=== PATIENT | female | born 1960 | race Two or more races ===

== ENCOUNTER 2023-03-14 17:18 | Inpatient (IN) | payer MEDICARE, MEDICAID ==
[~2023-03-14] VITALS: Ht 152.4 cm; Wt 95.9 kg
[2023-03-14 20:05] LABS: Basophils # (auto) 0 10 ^3/uL (0-0.2); Basophils % (auto) 0.3 % (0.0-2.0); Eosinophils # (auto) 0.1 10 ^3/uL (0-0.8); Eosinophils % (auto) 1.5 % (0.0-7.0); Hematocrit 38.5 % (36.0-46.0); Hemoglobin 12.2 g/dL (12.2-16.2); Lymphocytes # (auto) 1.1 10 ^3/uL (0.4-5.4); Lymphocytes % (auto) 26.2 % (10.0-50.0); Mean Corpuscular Hemoglobin 32.1 pg (28.0-32.0); Mean Corpuscular Hgb Conc. 31.7 g/dL (32.0-36.0); Mean Corpuscular Volume 101.2 fL (80.0-100.0); Monocytes # (auto) 0.4 10 ^3/uL (0-1.3); Monocytes % (auto) 8.3 % (0.0-12.0); Neutrophils # (auto) 2.7 10 ^3/uL (1.6-8.6); Neutrophils % (auto) 63.7 % (37.0-80.0); Nucleated Red Blood Cells % 0.1 %; Red Cell Distribution Width 17.7 % (11.8-14.3); White Blood Cell 4.3 10^3/uL (4.4-10.8)
[2023-03-14 20:20] LABS: INR 1.02 (0.9-1.15); Partial Thromboplastin Time 32.2 SEC (24.5-34.5); Prothrombin Time 10.7 sec (9.3-11.8)
[2023-03-14 20:25] LABS: Alanine Aminotransferase 13 U/L (7-40); Anion Gap 7 (5-15); Aspartate Aminotransferase 14 U/L (13-40); BUN/Creatinine Ratio 3.7 (10.0-20.0); Bilirubin, Total 0.2 mg/dL (0.2-1.0); Blood Urea Nitrogen 12 mg/dL (9-23); Calcium 8.6 mg/dL (8.7-10.4); Carbon Dioxide 31 mmol/L (20-30); Chloride 107 mmol/L (98-107); Glucose 68 mg/dL (74-106); Potassium 3.9 mmol/L (3.5-5.1); Sodium 145 mmol/L (136-145); Total Protein 5.2 g/dL (5.7-8.2)
[2023-03-14 20:53] LABS: Alkaline Phosphatase > 2300 U/L (46-116)
[2023-03-15 02:10] VITALS: PULSE 86; RESP 12; O2SAT 94
[2023-03-15] MEDS ORDERED: MORPHINE SULFATE 4 MG/ML SYR/VIAL IV ONE (03:00)
[2023-03-15] MEDS ORDERED: ONDANSETRON HCL 4 MG/2 ML VIAL IV ONE (03:00)
[2023-03-15] MEDS ORDERED: MORPHINE SULFATE INJ 2 MG/ml SYRG IV PRN (04:00)
[2023-03-15] MEDS ORDERED: D5W/SOD CHLO 0.9% 1,000 ML IV SCH (04:00)
[2023-03-15 09:48] LABS: Albumin 2.1 g/dL (3.2-4.8); Anion Gap 8 (5-15); Aspartate Aminotransferase 9 U/L (13-40); BUN/Creatinine Ratio 2.8 (10.0-20.0); Blood Urea Nitrogen 7 mg/dL (9-23); Calcium 6.9 mg/dL (8.5-10.1); Carbon Dioxide 25 mmol/L (20-30); Chloride 110 mmol/L (98-107); Glucose 52 mg/dL (74-106); Potassium 3.8 mmol/L (3.5-5.1); Sodium 143 mmol/L (136-145)
[2023-03-15 09:49] LABS: Bilirubin, Total 0.2 mg/dL (0.2-1.0); Total Protein 3.8 g/dL (5.7-8.2)
[2023-03-15 10:28] LABS: Alanine Aminotransferase < 9 U/L (7-40)
[2023-03-15 19:50] VITALS: PULSE 77; RESP 16; O2SAT 100
[2023-03-16] VITALS (40 sets, daily range): BP systolic 74–130; BP diastolic 38–64; PULSE 47–99; RESP 10–29; TEMP 93–97.6; O2SAT 83–100
[2023-03-16] MEDS ORDERED: SODIUM CHL 0.9% 1000 ML BAG XX ONE (07:00)
[2023-03-16] MEDS ORDERED: ALBUMIN 25% 100 ML IV ONE (08:15)
[2023-03-16 09:51] LABS: Basophils # (auto) 0 10 ^3/uL (0-0.2); Basophils % (auto) 0.4 % (0.0-2.0); Eosinophils # (auto) 0.1 10 ^3/uL (0-0.8); Eosinophils % (auto) 1.6 % (0.0-7.0); Hematocrit 27.2 % (36.0-46.0); Hemoglobin 8.8 g/dL (12.2-16.2); Lymphocytes # (auto) 0.8 10 ^3/uL (0.4-5.4); Mean Corpuscular Hemoglobin 32.4 pg (28.0-32.0); Mean Corpuscular Hgb Conc. 32.2 g/dL (32.0-36.0); Mean Corpuscular Volume 100.6 fL (80.0-100.0); Monocytes # (auto) 0.3 10 ^3/uL (0-1.3); Monocytes % (auto) 8.5 % (0.0-12.0); Neutrophils # (auto) 2.5 10 ^3/uL (1.6-8.6); Neutrophils % (auto) 67.5 % (37.0-80.0); Nucleated Red Blood Cells % 0.1 %; Red Blood Cells 2.71 10^6/uL (4.0-5.20); Red Cell Distribution Width 17.4 % (11.8-14.3); White Blood Cell 3.6 10^3/uL (4.4-10.8)
[2023-03-16] MEDS ORDERED: NOREPINEPHRINE 8 MG/250ML KIT 250 ML IV ONE (09:53)
[2023-03-16 09:59] LABS: Albumin 2.6 g/dL (3.2-4.8); Anion Gap 2 (5-15); Aspartate Aminotransferase < 8 U/L (13-40); BUN/Creatinine Ratio 3.2 (10.0-20.0); Bilirubin, Total 0.2 mg/dL (0.2-1.0); Blood Urea Nitrogen 8 mg/dL (9-23); Calcium 8.3 mg/dL (8.5-10.1); Carbon Dioxide 35 mmol/L (20-30); Chloride 107 mmol/L (98-107); Glucose 76 mg/dL (74-106); Potassium 3.3 mmol/L (3.5-5.1); Sodium 144 mmol/L (136-145); Total Protein 4.4 g/dL (5.7-8.2)
[2023-03-16 10:01] LABS: Alanine Aminotransferase < 9 U/L (7-40)
[2023-03-16 10:07] LABS: Alkaline Phosphatase 1592 U/L (46-116)
[2023-03-16] MEDS ORDERED: CEFEPIME 1GM/ 50ML 50 ML IV ONE (10:15)
[2023-03-16] MEDS ORDERED: VANCOMYCIN PER PHARMACY 0 MG IV SCH (10:15)
[2023-03-16] MEDS ORDERED: VANCOMYCIN PER PHARMACY 0 MG IV ONE (10:15)
[2023-03-16] MEDS ORDERED: VANCOMYCIN 1GM/250ML 250 ML IV ONE (11:00)
[2023-03-16] MEDS ORDERED: BUMETANIDE 2.5mg/10ml (0.25 mg/ml) INJ IV ONE (13:15)
[2023-03-16] MEDS: NOREPINEPHRINE 8 MG/250ML KIT 250 ML IV SCH (15:45)
[2023-03-16 16:30] LABS: Basophils # (auto) 0 10 ^3/uL (0-0.2); Basophils % (auto) 0.3 % (0.0-2.0); Eosinophils # (auto) 0.1 10 ^3/uL (0-0.8); Eosinophils % (auto) 1.7 % (0.0-7.0); Lymphocytes # (auto) 1.4 10 ^3/uL (0.4-5.4); Lymphocytes % (auto) 23.7 % (10.0-50.0); Mean Corpuscular Hemoglobin 31.3 pg (28.0-32.0); Mean Corpuscular Hgb Conc. 31.6 g/dL (32.0-36.0); Mean Corpuscular Volume 99.1 fL (80.0-100.0); Monocytes # (auto) 0.5 10 ^3/uL (0-1.3); Neutrophils # (auto) 3.8 10 ^3/uL (1.6-8.6); Neutrophils % (auto) 65.3 % (37.0-80.0); Nucleated Red Blood Cells % 0.2 %; Red Blood Cells 3.83 10^6/uL (4.0-5.20); Red Cell Distribution Width 19.2 % (11.8-14.3); White Blood Cell 5.8 10^3/uL (4.4-10.8)
[2023-03-16] MEDS: BUMETANIDE 2.5mg/10ml (0.25 mg/ml) INJ IV SCH (17:20)
[2023-03-16 17:21] LABS: Albumin 3.1 g/dL (3.2-4.8); Anion Gap 3 (5-15); Aspartate Aminotransferase 9 U/L (13-40); BUN/Creatinine Ratio 2.7 (10.0-20.0); Blood Urea Nitrogen 9 mg/dL (9-23); Carbon Dioxide 33 mmol/L (20-30); Chloride 106 mmol/L (98-107); Glucose 105 mg/dL (74-106); Potassium 3.9 mmol/L (3.5-5.1); Sodium 142 mmol/L (136-145)
[2023-03-16 17:22] LABS: Bilirubin, Total 0.4 mg/dL (0.2-1.0); Total Protein 5.2 g/dL (5.7-8.2)
[2023-03-16 17:29] LABS: Alkaline Phosphatase 1851 U/L (46-116)
[2023-03-16 17:49] LABS: Alanine Aminotransferase < 9 U/L (7-40)
[2023-03-16] MEDS ORDERED: VANCOMYCIN 500 MG in D5W 5% 100 ML IV ONE (22:00)
[2023-03-17] VITALS (65 sets, daily range): BP systolic 88–160; BP diastolic 31–87; PULSE 45–122; RESP 10–24; TEMP 96–97.7; O2SAT 76–100
[2023-03-17 05:32] LABS: Albumin 2.9 g/dL (3.2-4.8); Anion Gap 5 (5-15); Aspartate Aminotransferase 10 U/L (13-40); BUN/Creatinine Ratio 2.7 (10.0-20.0); Bilirubin, Total 0.3 mg/dL (0.2-1.0); Blood Urea Nitrogen 10 mg/dL (9-23); Calcium 8.9 mg/dL (8.7-10.4); Carbon Dioxide 31 mmol/L (20-30); Chloride 106 mmol/L (98-107); Glucose 59 mg/dL (74-106); Potassium 4.3 mmol/L (3.5-5.1); Sodium 142 mmol/L (136-145); Total Protein 4.9 g/dL (5.7-8.2)
[2023-03-17] MEDS: BUMETANIDE 2.5mg/10ml (0.25 mg/ml) INJ IV SCH ×2 (05:34→18:03)
[2023-03-17 05:39] LABS: Alkaline Phosphatase 1764 U/L (46-116)
[2023-03-17 05:47] LABS: Alanine Aminotransferase < 9 U/L (7-40)
[2023-03-17 06:03] LABS: Basophils # (auto) 0 10 ^3/uL (0-0.2); Eosinophils # (auto) 0.1 10 ^3/uL (0-0.8); Hemoglobin 11.1 g/dL (12.2-16.2); Lymphocytes # (auto) 1.1 10 ^3/uL (0.4-5.4); Lymphocytes % (auto) 27.8 % (10.0-50.0); Monocytes # (auto) 0.5 10 ^3/uL (0-1.3); Neutrophils # (auto) 2.4 10 ^3/uL (1.6-8.6)
[2023-03-17 06:05] LABS: Basophils % (auto) 0.4 % (0.0-2.0); Eosinophils % (auto) 2.7 % (0.0-7.0); Hematocrit 35.1 % (36.0-46.0); Mean Corpuscular Hemoglobin 32.2 pg (28.0-32.0); Mean Corpuscular Hgb Conc. 31.5 g/dL (32.0-36.0); Mean Corpuscular Volume 102.1 fL (80.0-100.0); Monocytes % (auto) 11.8 % (0.0-12.0); Neutrophils % (auto) 57.3 % (37.0-80.0); Nucleated Red Blood Cells % 0.2 %; Red Blood Cells 3.44 10^6/uL (4.0-5.20); White Blood Cell 4.1 10^3/uL (4.4-10.8)
[2023-03-17 09:08] LABS: Hepatitis B Surface Antigen Negative (Negative)
[2023-03-17 09:28] LABS: Hepatitis A Ab IgM Negative
[2023-03-17 09:29] LABS: Hepatitis B Core IgM Negative; Hepatitis C Antibody Negative (Negative)
[2023-03-17] MEDS: CEFEPIME 1GM/ 50ML 50 ML IV SCH (10:00)
[2023-03-17] MEDS ORDERED: DOPamine 1600MCG/ML D5W 250 ML IV ONE (10:34)
[2023-03-17] MEDS: ONDANSETRON HCL 4 MG/2 ML VIAL IV PRN ×2 (11:12→20:25)
[2023-03-17] MEDS: DOPamine 1600MCG/ML D5W 250 ML IV SCH (13:23)
[2023-03-17] MEDS: HYDROcodone-ACET 5/325MG TAB PO PRN (13:30)
[2023-03-17] MEDS: NOREPINEPHRINE 8 MG/250ML KIT 250 ML IV SCH ×2 (15:00→23:18)
[2023-03-17] MEDS ORDERED: VANCOMYCIN 1GM/250ML 250 ML IV ONE (18:00)
[2023-03-17] MEDS ORDERED: DEXTROSE (50%) 50ML SYRG IV PRN (19:00)
[2023-03-17] MEDS ORDERED: EPOETIN ALFA-EPBX 10,000 UNIT/1ML VIAL SC ONE (21:00)
[2023-03-17] MEDS: ACCU-CHEK COMFORT CURVE STRIP VI SCH (22:45)
[2023-03-18] VITALS (97 sets, daily range): BP systolic 91–147; BP diastolic 34–75; PULSE 48–117; RESP 9–28; TEMP 97.4–98.6; O2SAT 79–100
[2023-03-18] MEDS: DOPamine 1600MCG/ML D5W 250 ML IV SCH ×2 (02:52→13:55)
[2023-03-18 04:56] LABS: Basophils # (auto) 0 10 ^3/uL (0-0.2); Basophils % (auto) 0.4 % (0.0-2.0); Eosinophils # (auto) 0 10 ^3/uL (0-0.8); Eosinophils % (auto) 0.5 % (0.0-7.0); Hematocrit 44.2 % (36.0-46.0); Lymphocytes # (auto) 1.1 10 ^3/uL (0.4-5.4); Lymphocytes % (auto) 12.1 % (10.0-50.0); Mean Corpuscular Hemoglobin 31.7 pg (28.0-32.0); Mean Corpuscular Hgb Conc. 31.8 g/dL (32.0-36.0); Mean Corpuscular Volume 99.8 fL (80.0-100.0); Monocytes # (auto) 1.3 10 ^3/uL (0-1.3); Monocytes % (auto) 14.3 % (0.0-12.0); Neutrophils # (auto) 6.9 10 ^3/uL (1.6-8.6); Neutrophils % (auto) 72.7 % (37.0-80.0); Nucleated Red Blood Cells % 0.1 %; Red Blood Cells 4.42 10^6/uL (4.0-5.20); Red Cell Distribution Width 18.4 % (11.8-14.3); White Blood Cell 9.5 10^3/uL (4.4-10.8)
[2023-03-18 05:12] LABS: Alanine Aminotransferase 10 U/L (7-40); Albumin 3.6 g/dL (3.2-4.8); Anion Gap 7 (5-15); Aspartate Aminotransferase 13 U/L (13-40); BUN/Creatinine Ratio 3.1 (10.0-20.0); Blood Urea Nitrogen 12 mg/dL (9-23); Calcium 9.1 mg/dL (8.7-10.4); Carbon Dioxide 31 mmol/L (20-30); Chloride 103 mmol/L (98-107); Glucose 103 mg/dL (74-106); Potassium 4.4 mmol/L (3.5-5.1); Sodium 141 mmol/L (136-145)
[2023-03-18 05:13] LABS: Bilirubin, Total 0.3 mg/dL (0.2-1.0); Total Protein 6.3 g/dL (5.7-8.2)
[2023-03-18 05:19] LABS: Alkaline Phosphatase 2239 U/L (46-116)
[2023-03-18] MEDS: ACCU-CHEK COMFORT CURVE STRIP VI SCH ×4 (06:38→22:40)
[2023-03-18] MEDS: BUMETANIDE 2.5mg/10ml (0.25 mg/ml) INJ IV SCH ×2 (06:38→17:37)
[2023-03-18] MEDS ORDERED: MIDODRINE HCL 10 MG TAB PO ONE (10:15)
[2023-03-18] MEDS ORDERED: B-COMPLEX W/ C & FOLIC ACID(NEPHROVITE TAB) PO ONE (10:15)
[2023-03-18] MEDS: CEFEPIME 1GM/ 50ML 50 ML IV SCH (10:51)
[2023-03-18] MEDS: Nepro With Carbsteady ButterPecan 8oz Carton PO SCH ×2 (12:00→17:38)
[2023-03-18] MEDS: MIDODRINE HCL 10 MG TAB PO SCH (17:44)
[2023-03-19] VITALS (93 sets, daily range): BP systolic 80–129; BP diastolic 37–65; PULSE 52–100; RESP 9–20; TEMP 97.4–98.1; O2SAT 84–100
[2023-03-19] MEDS: DOPamine 1600MCG/ML D5W 250 ML IV SCH ×2 (04:41→16:35)
[2023-03-19] MEDS: BUMETANIDE 2.5mg/10ml (0.25 mg/ml) INJ IV SCH ×2 (05:54→18:28)
[2023-03-19] MEDS: HYDROcodone-ACET 5/325MG TAB PO PRN (05:55)
[2023-03-19] MEDS: MIDODRINE HCL 10 MG TAB PO SCH ×3 (05:56→18:28)
[2023-03-19 06:17] LABS: Basophils # (auto) 0 10 ^3/uL (0-0.2); Basophils % (auto) 0.2 % (0.0-2.0); Eosinophils # (auto) 0.1 10 ^3/uL (0-0.8); Eosinophils % (auto) 1.4 % (0.0-7.0); Hematocrit 37.8 % (36.0-46.0); Hemoglobin 12.1 g/dL (12.2-16.2); Lymphocytes # (auto) 0.9 10 ^3/uL (0.4-5.4); Lymphocytes % (auto) 12.7 % (10.0-50.0); Mean Corpuscular Hemoglobin 32.2 pg (28.0-32.0); Mean Corpuscular Hgb Conc. 32.1 g/dL (32.0-36.0); Mean Corpuscular Volume 100.3 fL (80.0-100.0); Monocytes # (auto) 0.9 10 ^3/uL (0-1.3); Monocytes % (auto) 13.3 % (0.0-12.0); Neutrophils # (auto) 4.9 10 ^3/uL (1.6-8.6); Neutrophils % (auto) 72.4 % (37.0-80.0); Nucleated Red Blood Cells % 0.1 %; Red Blood Cells 3.76 10^6/uL (4.0-5.20); Red Cell Distribution Width 17.8 % (11.8-14.3); White Blood Cell 6.8 10^3/uL (4.4-10.8)
[2023-03-19 06:29] LABS: Anion Gap 4 (5-15); Calcium 8.4 mg/dL (8.7-10.4); Carbon Dioxide 32 mmol/L (20-30); Chloride 103 mmol/L (98-107); Potassium 4.8 mmol/L (3.5-5.1); Sodium 139 mmol/L (136-145)
[2023-03-19 06:35] LABS: BUN/Creatinine Ratio 4.7 (10.0-20.0); Blood Urea Nitrogen 21 mg/dL (9-23); Glucose 79 mg/dL (74-106)
[2023-03-19] MEDS: ACCU-CHEK COMFORT CURVE STRIP VI SCH ×4 (06:44→22:25)
[2023-03-19] MEDS: Nepro With Carbsteady ButterPecan 8oz Carton PO SCH ×3 (08:00→18:00)
[2023-03-19] MEDS: CEFEPIME 1GM/ 50ML 50 ML IV SCH (09:56)
[2023-03-19] MEDS: B-COMPLEX W/ C & FOLIC ACID(NEPHROVITE TAB) PO SCH (09:56)
[2023-03-19] MEDS: NOREPINEPHRINE 8 MG/250ML KIT 250 ML IV SCH (15:45)
[2023-03-19] MEDS ORDERED: VANCOMYCIN 500 MG in D5W 5% 100 ML IV ONE (16:00)
[2023-03-19] MEDS: MORPHINE SULFATE INJ 2 MG/ml SYRG IV PRN (22:35)
[2023-03-20] VITALS (100 sets, daily range): BP systolic 75–145; BP diastolic 33–70; PULSE 54–129; RESP 9–52; TEMP 97.7–98.5; O2SAT 83–100
[2023-03-20] MEDS: MORPHINE SULFATE INJ 2 MG/ml SYRG IV PRN (04:24)
[2023-03-20] MEDS: BUMETANIDE 2.5mg/10ml (0.25 mg/ml) INJ IV SCH ×2 (06:03→18:00)
[2023-03-20] MEDS: MIDODRINE HCL 10 MG TAB PO SCH ×4 (06:03→16:41)
[2023-03-20] MEDS: DOPamine 1600MCG/ML D5W 250 ML IV SCH ×2 (06:16→11:45)
[2023-03-20] MEDS: ACCU-CHEK COMFORT CURVE STRIP VI SCH ×4 (06:28→22:49)
[2023-03-20] MEDS: Nepro With Carbsteady ButterPecan 8oz Carton PO SCH ×3 (08:00→18:00)
[2023-03-20] MEDS: CEFEPIME 1GM/ 50ML 50 ML IV SCH (10:23)
[2023-03-20] MEDS: B-COMPLEX W/ C & FOLIC ACID(NEPHROVITE TAB) PO SCH ×2 (12:44→13:24)
[2023-03-20] MEDS: NOREPINEPHRINE 8 MG/250ML KIT 250 ML IV SCH (15:45)
[2023-03-20] MEDS: HYDROcodone-ACET 5/325MG TAB PO PRN (20:27)
[2023-03-21] VITALS (100 sets, daily range): BP systolic 69–161; BP diastolic 34–107; PULSE 57–106; RESP 8–69; TEMP 97.4–97.7; O2SAT 87–100
[2023-03-21] MEDS: DOPamine 1600MCG/ML D5W 250 ML IV SCH ×2 (01:21→18:00)
[2023-03-21] MEDS: MIDODRINE HCL 10 MG TAB PO SCH ×3 (05:38→18:00)
[2023-03-21] MEDS: BUMETANIDE 2.5mg/10ml (0.25 mg/ml) INJ IV SCH (05:38)
[2023-03-21] MEDS: HYDROcodone-ACET 5/325MG TAB PO PRN ×2 (06:04→11:56)
[2023-03-21] MEDS: ACCU-CHEK COMFORT CURVE STRIP VI SCH ×4 (06:06→23:08)
[2023-03-21] MEDS: Nepro With Carbsteady ButterPecan 8oz Carton PO SCH ×3 (08:00→18:00)
[2023-03-21] MEDS: B-COMPLEX W/ C & FOLIC ACID(NEPHROVITE TAB) PO SCH (09:58)
[2023-03-21] MEDS: CEFEPIME 1GM/ 50ML 50 ML IV SCH (09:59)
[2023-03-21] MEDS: NOREPINEPHRINE 8 MG/250ML KIT 250 ML IV SCH (15:45)
[2023-03-22] VITALS (138 sets, daily range): BP systolic 40–143; BP diastolic 16–94; PULSE 51–136; RESP 7–30; TEMP 96–97.6; O2SAT 91–100
[2023-03-22] MEDS: MORPHINE SULFATE INJ 2 MG/ml SYRG IV PRN ×2 (00:33→06:12)
[2023-03-22] MEDS: DOPamine 1600MCG/ML D5W 250 ML IV SCH ×2 (03:45→13:31)
[2023-03-22] MEDS ORDERED: SODIUM CHL 0.9% 1000 ML BAG XX ONE (07:00)
[2023-03-22] MEDS: ACCU-CHEK COMFORT CURVE STRIP VI SCH ×4 (07:13→22:24)
[2023-03-22] MEDS: MIDODRINE HCL 10 MG TAB PO SCH ×3 (07:13→17:32)
[2023-03-22] MEDS: Nepro With Carbsteady ButterPecan 8oz Carton PO SCH ×3 (08:00→17:32)
[2023-03-22] MEDS ORDERED: ALBUMIN 25% 100 ML IV PRN ×2 (08:00→10:30)
[2023-03-22] MEDS ORDERED: LIDOCAINE 2% (LOCAL ANESTH.) PF 5ml SDV IJ ONE (09:00)
[2023-03-22] MEDS: B-COMPLEX W/ C & FOLIC ACID(NEPHROVITE TAB) PO SCH (10:00)
[2023-03-22] MEDS: CEFEPIME 1GM/ 50ML 50 ML IV SCH (13:25)
[2023-03-22] MEDS: NOREPINEPHRINE 8 MG/250ML KIT 250 ML IV SCH (15:45)
[2023-03-22] MEDS ORDERED: VANCOMYCIN 1GM/250ML 250 ML IV ONE (17:00)
[2023-03-23] VITALS (113 sets, daily range): BP systolic 75–137; BP diastolic 27–87; PULSE 50–126; RESP 9–23; TEMP 96.8–98.3; O2SAT 87–100
[2023-03-23] MEDS: ONDANSETRON HCL 4 MG/2 ML VIAL IV PRN (02:25)
[2023-03-23 06:09] LABS: Basophils # (auto) 0 10 ^3/uL (0-0.2); Basophils % (auto) 0.6 % (0.0-2.0); Eosinophils # (auto) 0.2 10 ^3/uL (0-0.8); Eosinophils % (auto) 3.2 % (0.0-7.0); Hematocrit 36.5 % (36.0-46.0); Hemoglobin 11.9 g/dL (12.2-16.2); Lymphocytes # (auto) 0.8 10 ^3/uL (0.4-5.4); Lymphocytes % (auto) 14.2 % (10.0-50.0); Mean Corpuscular Hemoglobin 31.4 pg (28.0-32.0); Mean Corpuscular Hgb Conc. 32.6 g/dL (32.0-36.0); Mean Corpuscular Volume 96.3 fL (80.0-100.0); Monocytes # (auto) 0.6 10 ^3/uL (0-1.3); Monocytes % (auto) 10.4 % (0.0-12.0); Neutrophils # (auto) 3.8 10 ^3/uL (1.6-8.6); Neutrophils % (auto) 71.6 % (37.0-80.0); Nucleated Red Blood Cells % 0.1 %; Red Blood Cells 3.79 10^6/uL (4.0-5.20); Red Cell Distribution Width 17.2 % (11.8-14.3); White Blood Cell 5.3 10^3/uL (4.4-10.8)
[2023-03-23] MEDS: DOPamine 1600MCG/ML D5W 250 ML IV SCH ×2 (06:25→17:21)
[2023-03-23] MEDS: MIDODRINE HCL 10 MG TAB PO SCH ×3 (07:04→17:21)
[2023-03-23] MEDS: ACCU-CHEK COMFORT CURVE STRIP VI SCH ×4 (07:04→22:26)
[2023-03-23] MEDS: Nepro With Carbsteady ButterPecan 8oz Carton PO SCH ×3 (08:00→17:08)
[2023-03-23] MEDS: CEFEPIME 1GM/ 50ML 50 ML IV SCH ×2 (08:27→22:26)
[2023-03-23] MEDS: B-COMPLEX W/ C & FOLIC ACID(NEPHROVITE TAB) PO SCH (08:27)
[2023-03-23 08:43] LABS: Chloride 103 mmol/L (98-107); Potassium 4.1 mmol/L (3.5-5.1); Sodium 138 mmol/L (136-145)
[2023-03-23 08:44] LABS: Anion Gap 4 (5-15); Carbon Dioxide 31 mmol/L (20-30)
[2023-03-23 08:45] LABS: Calcium 9.1 mg/dL (8.5-10.1)
[2023-03-23 08:49] LABS: Glucose 81 mg/dL (74-106)
[2023-03-23 08:50] LABS: BUN/Creatinine Ratio 4.3 (10.0-20.0); Blood Urea Nitrogen 17 mg/dL (9-23)
[2023-03-23] MEDS: NOREPINEPHRINE 8 MG/250ML KIT 250 ML IV SCH (14:27)
[2023-03-23] MEDS: Ensure HIGH Protein Chocolate 8oz Bottle PO SCH (18:00)
[2023-03-24] VITALS (96 sets, daily range): BP systolic 66–157; BP diastolic 29–84; PULSE 50–99; RESP 8–25; TEMP 97.1–98; O2SAT 68–100
[2023-03-24] MEDS: ACCU-CHEK COMFORT CURVE STRIP VI SCH ×4 (06:18→21:29)
[2023-03-24] MEDS: MIDODRINE HCL 10 MG TAB PO SCH ×4 (06:22→17:54)
[2023-03-24] MEDS: Ensure HIGH Protein Chocolate 8oz Bottle PO SCH (08:00)
[2023-03-24] MEDS: DOPamine 1600MCG/ML D5W 250 ML IV SCH ×2 (09:12→22:25)
[2023-03-24] MEDS: CEFEPIME 1GM/ 50ML 50 ML IV SCH ×2 (09:12→21:29)
[2023-03-24] MEDS: B-COMPLEX W/ C & FOLIC ACID(NEPHROVITE TAB) PO SCH (10:03)
[2023-03-24] MEDS: NOREPINEPHRINE 8 MG/250ML KIT 250 ML IV SCH (10:05)
[2023-03-24] MEDS: Glucerna Carbsteady SHAKE Vanilla 8oz PO SCH ×2 (12:00→17:54)
[2023-03-24] MEDS ORDERED: SODIUM CHL 0.9% 1000 ML BAG XX ONE (20:30)
[2023-03-25] VITALS (89 sets, daily range): BP systolic 82–146; BP diastolic 39–75; PULSE 50–111; RESP 9–41; TEMP 96.4–98.2; O2SAT 68–100
[2023-03-25 05:51] LABS: Basophils # (auto) 0 10 ^3/uL (0-0.2); Basophils % (auto) 0.3 % (0.0-2.0); Eosinophils # (auto) 0.2 10 ^3/uL (0-0.8); Hematocrit 35.5 % (36.0-46.0); Hemoglobin 11.5 g/dL (12.2-16.2); Lymphocytes % (auto) 17.1 % (10.0-50.0); Mean Corpuscular Hemoglobin 31.9 pg (28.0-32.0); Mean Corpuscular Hgb Conc. 32.3 g/dL (32.0-36.0); Mean Corpuscular Volume 98.8 fL (80.0-100.0); Monocytes # (auto) 0.6 10 ^3/uL (0-1.3); Monocytes % (auto) 10.2 % (0.0-12.0); Neutrophils # (auto) 4.1 10 ^3/uL (1.6-8.6); Neutrophils % (auto) 69.4 % (37.0-80.0); Red Cell Distribution Width 17.3 % (11.8-14.3); White Blood Cell 5.9 10^3/uL (4.4-10.8)
[2023-03-25 05:56] LABS: Anion Gap 5 (5-15); Calcium 8.8 mg/dL (8.5-10.1); Carbon Dioxide 30 mmol/L (20-30); Chloride 102 mmol/L (98-107); Potassium 4.6 mmol/L (3.5-5.1); Sodium 137 mmol/L (136-145)
[2023-03-25] MEDS: ACCU-CHEK COMFORT CURVE STRIP VI SCH ×4 (06:00→22:00)
[2023-03-25 06:01] LABS: BUN/Creatinine Ratio 4.7 (10.0-20.0); Blood Urea Nitrogen 24 mg/dL (9-23); Glucose 78 mg/dL (74-106)
[2023-03-25] MEDS ORDERED: SODIUM CHL 0.9% 1000 ML BAG XX ONE (07:00)
[2023-03-25] MEDS: MIDODRINE HCL 10 MG TAB PO SCH ×3 (07:13→18:24)
[2023-03-25] MEDS: Glucerna Carbsteady SHAKE Vanilla 8oz PO SCH ×3 (08:00→18:00)
[2023-03-25] MEDS: CEFEPIME 1GM/ 50ML 50 ML IV SCH ×2 (10:06→22:26)
[2023-03-25] MEDS: DOPamine 1600MCG/ML D5W 250 ML IV SCH (11:45)
[2023-03-25] MEDS: B-COMPLEX W/ C & FOLIC ACID(NEPHROVITE TAB) PO SCH (14:45)
[2023-03-25] MEDS: NOREPINEPHRINE 8 MG/250ML KIT 250 ML IV SCH (14:46)
[2023-03-26] VITALS (48 sets, daily range): BP systolic 90–140; BP diastolic 42–102; PULSE 56–113; RESP 8–21; TEMP 96.1–97.9; O2SAT 90–100
[2023-03-26] MEDS: DOPamine 1600MCG/ML D5W 250 ML IV SCH ×2 (01:05→14:25)
[2023-03-26] MEDS: MIDODRINE HCL 10 MG TAB PO SCH ×3 (06:30→18:05)
[2023-03-26] MEDS: ACCU-CHEK COMFORT CURVE STRIP VI SCH ×4 (06:31→22:00)
[2023-03-26] MEDS: Glucerna Carbsteady SHAKE Vanilla 8oz PO SCH ×3 (08:00→17:43)
[2023-03-26] MEDS: B-COMPLEX W/ C & FOLIC ACID(NEPHROVITE TAB) PO SCH (10:14)
[2023-03-26] MEDS: CEFEPIME 1GM/ 50ML 50 ML IV SCH ×2 (10:14→22:00)
[2023-03-26] MEDS ORDERED: VANCOMYCIN 500 MG in D5W 5% 100 ML IV ONE (13:00)
[2023-03-26] MEDS: NOREPINEPHRINE 8 MG/250ML KIT 250 ML IV SCH (15:45)
[2023-03-27] VITALS (20 sets, daily range): BP systolic 83–130; BP diastolic 37–73; PULSE 50–92; RESP 9–23; TEMP 97.4–98.1; O2SAT 89–100
[2023-03-27] MEDS: MORPHINE SULFATE INJ 2 MG/ml SYRG IV PRN (01:19)
[2023-03-27] MEDS: ONDANSETRON HCL 4 MG/2 ML VIAL IV PRN (01:19)
[2023-03-27] MEDS: DOPamine 1600MCG/ML D5W 250 ML IV SCH ×2 (03:45→17:05)
[2023-03-27 07:20] LABS: Basophils # (auto) 0 10 ^3/uL (0-0.2); Basophils % (auto) 0.3 % (0.0-2.0); Eosinophils # (auto) 0.1 10 ^3/uL (0-0.8); Eosinophils % (auto) 1.8 % (0.0-7.0); Hematocrit 32.3 % (36.0-46.0); Hemoglobin 10.3 g/dL (12.2-16.2); Lymphocytes # (auto) 0.8 10 ^3/uL (0.4-5.4); Lymphocytes % (auto) 13.7 % (10.0-50.0); Mean Corpuscular Hemoglobin 31.4 pg (28.0-32.0); Mean Corpuscular Volume 98.2 fL (80.0-100.0); Monocytes # (auto) 0.6 10 ^3/uL (0-1.3); Monocytes % (auto) 9.4 % (0.0-12.0); Neutrophils # (auto) 4.6 10 ^3/uL (1.6-8.6); Neutrophils % (auto) 74.8 % (37.0-80.0); Nucleated Red Blood Cells % 0.2 %; Red Blood Cells 3.29 10^6/uL (4.0-5.20); Red Cell Distribution Width 17.4 % (11.8-14.3); White Blood Cell 6.2 10^3/uL (4.4-10.8)
[2023-03-27] MEDS: ACCU-CHEK COMFORT CURVE STRIP VI SCH ×4 (07:22→22:00)
[2023-03-27] MEDS: MIDODRINE HCL 10 MG TAB PO SCH ×3 (07:35→19:20)
[2023-03-27] MEDS: Glucerna Carbsteady SHAKE Vanilla 8oz PO SCH (08:00)
[2023-03-27 08:09] LABS: Chloride 105 mmol/L (98-107); Potassium 4.7 mmol/L (3.5-5.1); Sodium 140 mmol/L (136-145)
[2023-03-27 08:10] LABS: Anion Gap 7 (5-15); Carbon Dioxide 28 mmol/L (20-30)
[2023-03-27 08:11] LABS: Calcium 8.9 mg/dL (8.5-10.1)
[2023-03-27 08:15] LABS: Blood Urea Nitrogen 17 mg/dL (9-23); Glucose 68 mg/dL (74-106)
[2023-03-27] MEDS: CEFEPIME 1GM/ 50ML 50 ML IV SCH ×2 (10:35→22:00)
[2023-03-27] MEDS: B-COMPLEX W/ C & FOLIC ACID(NEPHROVITE TAB) PO SCH (10:35)
[2023-03-27] MEDS: Ensure Enlive Strawberry 8oz Bottle PO SCH ×2 (12:00→18:00)
[2023-03-27] MEDS: NOREPINEPHRINE 8 MG/250ML KIT 250 ML IV SCH (15:45)
[2023-03-28] VITALS (71 sets, daily range): BP systolic 76–159; BP diastolic 30–108; PULSE 44–168; RESP 8–24; TEMP 94.3–98.6; O2SAT 77–100
[2023-03-28] MEDS: MIDODRINE HCL 10 MG TAB PO SCH ×3 (06:00→17:27)
[2023-03-28] MEDS: DOPamine 1600MCG/ML D5W 250 ML IV SCH ×2 (06:25→19:45)
[2023-03-28] MEDS: ACCU-CHEK COMFORT CURVE STRIP VI SCH ×4 (07:00→22:00)
[2023-03-28] MEDS ORDERED: SODIUM CHL 0.9% 1000 ML BAG XX ONE (07:00)
[2023-03-28] MEDS: Ensure Enlive Strawberry 8oz Bottle PO SCH ×3 (08:00→18:00)
[2023-03-28] MEDS: B-COMPLEX W/ C & FOLIC ACID(NEPHROVITE TAB) PO SCH (10:00)
[2023-03-28] MEDS ORDERED: ALBUMIN 25% 100 ML IV PRN (10:30)
[2023-03-28] MEDS: NOREPINEPHRINE 8 MG/250ML KIT 250 ML IV SCH (11:49)
[2023-03-28] MEDS: CEFEPIME 1GM/ 50ML 50 ML IV SCH (14:35)
[2023-03-28] MEDS ORDERED: VANCOMYCIN PER PHARMACY 0 MG IV SCH (16:15)
[2023-03-28] MEDS ORDERED: VANCOMYCIN 750mg/250ml 250 ML IV ONE (17:00)
[2023-03-28] MEDS ORDERED: EPOETIN ALFA-EPBX 10,000 UNIT/1ML VIAL SC ONE (21:00)
[2023-03-29] VITALS (91 sets, daily range): BP systolic 74–154; BP diastolic 31–75; PULSE 48–100; RESP 9–23; TEMP 96.8–99.3; O2SAT 92–100
[2023-03-29] MEDS: CEFEPIME 1GM/ 50ML 50 ML IV SCH ×3 (00:04→21:34)
[2023-03-29] MEDS: MIDODRINE HCL 10 MG TAB PO SCH ×3 (06:00→17:35)
[2023-03-29] MEDS: ACCU-CHEK COMFORT CURVE STRIP VI SCH ×4 (06:41→22:09)
[2023-03-29] MEDS: Ensure Enlive Strawberry 8oz Bottle PO SCH ×3 (08:00→17:35)
[2023-03-29 08:15] LABS: Basophils # (auto) 0 10 ^3/uL (0-0.2); Basophils % (auto) 0.5 % (0.0-2.0); Eosinophils # (auto) 0.1 10 ^3/uL (0-0.8); Eosinophils % (auto) 1.8 % (0.0-7.0); Hematocrit 36.1 % (36.0-46.0); Hemoglobin 11.5 g/dL (12.2-16.2); Lymphocytes # (auto) 1.4 10 ^3/uL (0.4-5.4); Lymphocytes % (auto) 18.8 % (10.0-50.0); Mean Corpuscular Hemoglobin 31.5 pg (28.0-32.0); Mean Corpuscular Hgb Conc. 31.9 g/dL (32.0-36.0); Mean Corpuscular Volume 98.7 fL (80.0-100.0); Monocytes # (auto) 0.9 10 ^3/uL (0-1.3); Monocytes % (auto) 11.9 % (0.0-12.0); Neutrophils # (auto) 4.9 10 ^3/uL (1.6-8.6); Nucleated Red Blood Cells % 0.1 %; Red Blood Cells 3.66 10^6/uL (4.0-5.20); Red Cell Distribution Width 17.6 % (11.8-14.3); White Blood Cell 7.3 10^3/uL (4.4-10.8)
[2023-03-29 08:21] LABS: Chloride 103 mmol/L (98-107); Potassium 3.7 mmol/L (3.5-5.1); Sodium 139 mmol/L (136-145)
[2023-03-29 08:27] LABS: Blood Urea Nitrogen 10 mg/dL (9-23); Glucose 80 mg/dL (74-106)
[2023-03-29] MEDS: DOPamine 1600MCG/ML D5W 250 ML IV SCH ×2 (09:05→22:25)
[2023-03-29 09:32] LABS: Anion Gap 5 (5-15); Carbon Dioxide 31 mmol/L (20-30)
[2023-03-29] MEDS: ONDANSETRON HCL 4 MG/2 ML VIAL IV PRN (09:55)
[2023-03-29] MEDS: B-COMPLEX W/ C & FOLIC ACID(NEPHROVITE TAB) PO SCH (09:55)
[2023-03-29] MEDS: NOREPINEPHRINE 8 MG/250ML KIT 250 ML IV SCH (23:27)
[2023-03-30] VITALS (48 sets, daily range): BP systolic 83–151; BP diastolic 37–114; PULSE 46–96; RESP 10–30; TEMP 96.6–98.8; O2SAT 80–100
[2023-03-30] MEDS: MIDODRINE HCL 10 MG TAB PO SCH ×3 (06:05→12:05)
[2023-03-30] MEDS: ACCU-CHEK COMFORT CURVE STRIP VI SCH ×2 (06:43→11:19)
[2023-03-30 07:51] LABS: Basophils # (auto) 0 10 ^3/uL (0-0.2); Basophils % (auto) 0.7 % (0.0-2.0); Blood Urea Nitrogen 11 mg/dL (9-23); Calcium 8.8 mg/dL (8.7-10.4); Carbon Dioxide 27 mmol/L (20-30); Chloride 102 mmol/L (98-107); Eosinophils # (auto) 0.1 10 ^3/uL (0-0.8); Eosinophils % (auto) 1.4 % (0.0-7.0); Glucose 55 mg/dL (74-106); Lymphocytes # (auto) 1.4 10 ^3/uL (0.4-5.4); Mean Corpuscular Hemoglobin 31.1 pg (28.0-32.0); Mean Corpuscular Hgb Conc. 31.5 g/dL (32.0-36.0); Mean Corpuscular Volume 98.8 fL (80.0-100.0); Monocytes # (auto) 0.8 10 ^3/uL (0-1.3); Monocytes % (auto) 12.3 % (0.0-12.0); Neutrophils # (auto) 4.5 10 ^3/uL (1.6-8.6); Neutrophils % (auto) 65.6 % (37.0-80.0); Nucleated Red Blood Cells % 0.1 %; Potassium 3.9 mmol/L (3.5-5.1); Red Blood Cells 3.54 10^6/uL (4.0-5.20); Red Cell Distribution Width 17.4 % (11.8-14.3); Sodium 140 mmol/L (136-145); White Blood Cell 6.8 10^3/uL (4.4-10.8)
[2023-03-30 07:54] LABS: Anion Gap 11 (5-15); BUN/Creatinine Ratio 2.8 (10.0-20.0)
[2023-03-30] MEDS: Ensure Enlive Strawberry 8oz Bottle PO SCH ×2 (08:00→12:00)
[2023-03-30] MEDS: CEFEPIME 1GM/ 50ML 50 ML IV SCH (09:35)
[2023-03-30] MEDS: B-COMPLEX W/ C & FOLIC ACID(NEPHROVITE TAB) PO SCH (09:35)
[2023-03-30] MEDS: DOPamine 1600MCG/ML D5W 250 ML IV SCH (11:45)
== END 2023-03-30 14:54 | disposition hospice, home (50) | DRG 871 ==
LOC: EDBD 17:18 → ER 17:18 → OVERFLOW 03-15 03:47 → WEST WING 03-15 23:29 → ICU CENTRL 03-16 11:35 → DOU IN ICU 03-17 13:52 → ICU CENTRL 03-29 03:47
PROVIDERS: ADMIT Nurse Practitioner; ATTEND Family Medicine
PROC: 30233N1 Transfusion of Nonautologous Red Blood Cells into Peripheral Vein, Percutaneous Approach (ICD-10-PCS; principal; 2023-03-16)
PROC: 05HC33Z Insertion of Infusion Device into Left Basilic Vein, Percutaneous Approach (ICD-10-PCS; 2023-03-16)
PROC: 5A1D70Z Performance of Urinary Filtration, Intermittent, Less than 6 Hours Per Day (ICD-10-PCS; 2023-03-16)
PROC: B54NZZA Ultrasonography of Left Upper Extremity Veins, Guidance (ICD-10-PCS; 2023-03-16)
PROC: 5A1D70Z Performance of Urinary Filtration, Intermittent, Less than 6 Hours Per Day (ICD-10-PCS; 2023-03-17)
PROC: 5A1D70Z Performance of Urinary Filtration, Intermittent, Less than 6 Hours Per Day (ICD-10-PCS; 2023-03-22)
PROC: 5A1D70Z Performance of Urinary Filtration, Intermittent, Less than 6 Hours Per Day (ICD-10-PCS; 2023-03-25)
PROC: 5A1D70Z Performance of Urinary Filtration, Intermittent, Less than 6 Hours Per Day (ICD-10-PCS; 2023-03-28)
DX: A41.9 Sepsis, unspecified organism (principal); G92.8 Other toxic encephalopathy; N18.6 End stage renal disease; R65.21 Severe sepsis with septic shock; S72.451A Displaced supracondylar fracture without intracondylar extension of lower end of right femur, initial encounter for closed fracture; E44.0 Moderate protein-calorie malnutrition; I47.20 Ventricular tachycardia, unspecified; Z68.41 Body mass index [BMI] 40.0-44.9, adult; I13.2 Hypertensive heart and chronic kidney disease with heart failure and with stage 5 chronic kidney disease, or end stage renal disease; I50.22 Chronic systolic (congestive) heart failure; W07.XXXA Fall from chair, initial encounter; D63.8 Anemia in other chronic diseases classified elsewhere; E16.2 Hypoglycemia, unspecified; E66.01 Morbid (severe) obesity due to excess calories; I95.89 Other hypotension; G47.30 Sleep apnea, unspecified; G47.33 Obstructive sleep apnea (adult) (pediatric); F03.C0 Unspecified dementia, severe, without behavioral disturbance, psychotic disturbance, mood disturbance, and anxiety; Z66 Do not resuscitate; K21.9 Gastro-esophageal reflux disease without esophagitis; R74.8 Abnormal levels of other serum enzymes; Z99.2 Dependence on renal dialysis; Z82.49 Family history of ischemic heart disease and other diseases of the circulatory system; Z74.01 Bed confinement status; Z51.5 Encounter for palliative care; Z79.899 Other long term (current) drug therapy; Y93.89 Activity, other specified; Y92.89 Other specified places as the place of occurrence of the external cause; Y99.8 Other external cause status
CPT/HCPCS: 36415; 36600; 71045; 71250; 73590; 73700; 74176; 80048; 80053; 80074; 80202; 82306; 82533; 82607; 82805; 82962; 83605; 83735; 83880; 83970; 84100; 84443; 84484; 85025; 85610; 85730; 86850; 86900; 86901; 86920; 87040; 87081; 90935; 93306; 96374; 96375; 97110; 97163; 97530; G0378; J1642; J2001; J2405; J7060; P9047